=== PATIENT | female | born 1995 | race Caucasian/White ===

== ENCOUNTER 2016-12-13 07:48 | Emergency (ER) | payer SELFPAY ==
[~2016-12-13] VITALS: Ht 157.5 cm; Wt 104.0 kg
[~2016-12-13 07:48] MED LIST: ANUCORT-HC25 MG RE; KETOROLAC10 MG PO; LORTAB 5 OR; NAPROSYN500 MG OR; NO HOME MEDS; PRENATAL1 TA1 PO; TAM75CAP PO
[2016-12-13 08:12] LABS: URINE BILIRUBIN - DIPSTICK NEGATIVE (NEGATIVE); URINE BLOOD DIPSTICK LARGE (NEGATIVE); URINE COLOR YELLOW; URINE GLUCOSE - DIPSTICK NEGATIVE (NEGATIVE); URINE KETONE NEGATIVE (NEGATIVE); URINE PH 6.5 (4.5-8.0); URINE PROTEIN - DIPSTICK 30 mg/dL (NEG-TRACE); URINE SPECIFIC GRAVITY 1.025; URINE UROBILINOGEN - DIPSTICK 0.2 E.U./dL (0.2)
[2016-12-13 08:13] LABS: URINE CLARITY CLOUDY; URINE LEUK ESTERASE MODERATE (NEGATIVE)
[2016-12-13] MEDS ORDERED: PYRIDIUM200 MG PO (08:13)
[2016-12-13] MEDS ORDERED: MACROBID100 MG PO (08:13)
[2016-12-13 08:16] VITALS: BP 129/82
[2016-12-13 08:29] LABS: URINE BACTERIA FEW hpf; URINE EPITHELIAL CELLS MODERATE EPI/hpf (0-FEW); URINE MUCUS MODERATE hpf (NONE-FEW); URINE NITRITE - DIPSTICK NEGATIVE (Negative); URINE RBC 25-50 RBC/hpf (0-5)
== END 2016-12-13 08:27 | disposition home or self-care (01) | DRG 781 ==
LOC: ED 07:48
PROVIDERS: Emergency Medicine
DX: O23.41 Unspecified infection of urinary tract in pregnancy, first trimester (principal); B95.7 Other staphylococcus as the cause of diseases classified elsewhere; Z3A.01 Less than 8 weeks gestation of pregnancy

== ENCOUNTER 2017-02-17 10:29 | Emergency (ER) | payer OTHER ==
[~2017-02-17] VITALS: Ht 157.5 cm; Wt 95.0 kg
[~2017-02-17 10:29] MED LIST changes: +MACROBID100 MG PO; +PYRIDIUM200 MG PO
[2017-02-17 11:11] VITALS: BP 136/88
== END 2017-02-17 11:15 | disposition home or self-care (01) | DRG 781 ==
LOC: ED 10:29
DX: O26.891 Other specified pregnancy related conditions, first trimester (principal); R51 Headache; Z3A.13 13 weeks gestation of pregnancy

== ENCOUNTER 2019-04-23 | Emergency (ER) | payer OTHER ==
[2019-04-24 00:40] LABS: URINE BILIRUBIN - DIPSTICK NEGATIVE (NEGATIVE); URINE BLOOD DIPSTICK NEGATIVE (NEGATIVE); URINE COLOR YELLOW; URINE GLUCOSE - DIPSTICK NEGATIVE (NEGATIVE); URINE KETONE NEGATIVE (NEGATIVE); URINE LEUK ESTERASE NEGATIVE (NEGATIVE); URINE NITRITE - DIPSTICK NEGATIVE (Negative); URINE PH 5.5 (4.5-8.0); URINE PROTEIN - DIPSTICK TRACE mg/dL (NEG-TRACE); URINE SPECIFIC GRAVITY >=1.030; URINE UROBILINOGEN - DIPSTICK 0.2 E.U./dL (0.2)
[2019-04-24 00:46] LABS: IMMATURE GRANULOCYTES 0.2 % (0.0-5.0); MEAN CORPUSCULAR HGB 20.7 pG CALC (26.0-32.0); MEAN CORPUSCULAR HGB CONC 28.4 g/L CALC (32.0-36.0); NEUT# 2.51 thou/uL (2.00-7.15); RED BLOOD COUNT 4.4 mill/uL (4.20-5.60); RED CELL DISTRI WIDTH 17.2 % (11.5-15.5)
[2019-04-24 00:47] LABS: HEMOGLOBIN 9.1 g/dl (12.0-16.0); MEAN CELL VOLUME 72.7 fL CALC (80.0-100.0)
[2019-04-24 01:02] LABS: ALBUMIN 4.4 g/dL (3.2-5.0); ANION GAP 14 (6-22 (CALC)); BUN 13 mg/dL (7-17); BUN/CREATININE RATIO 21 (12-20 (CALC)); CARBON DIOXIDE 25 mmol/l (22-30); CHLORIDE 103 mmol/l (95-108); CREATININE 0.6 mg/dL (0.5-1.0); GFR > 60 ML/MIN (>=60 (CALC)); GFR FOR AFR.AMER. > 60 ML/MIN (>=60 (CALC)); POTASSIUM 3.6 mmol/l (3.5-5.1); SGOT/AST 40 u/l (14-36); SODIUM 139 mmol/l (137-146); TOTAL PROTEIN 7.9 g/dL (6.3-8.2)
[2019-04-24 01:12] LABS: ALKALINE PHOSPHATASE 77 u/l (38-126); BILIRUBIN, TOTAL 0.5 mg/dL (0.0-1.4)
[2019-04-24] MEDS ORDERED: FLEXERIL PO (02:30)
[2019-04-24] MEDS ORDERED: NAPROXEN500 MG PO (02:30)
== END 2019-04-24 02:45 | disposition home or self-care (01) ==
PROVIDERS: Emergency Medicine
DX: M54.31 Sciatica, right side (principal); M47.816 Spondylosis without myelopathy or radiculopathy, lumbar region

== ENCOUNTER 2020-08-20 11:28 | Emergency (ER) | payer OTHER ==
[~2020-08-20] VITALS: Ht 154.9 cm; Wt 114.9 kg
[~2020-08-20 11:28] MED LIST changes: +FLEXERIL PO; +NAPROXEN500 MG PO
[2020-08-20 11:30] VITALS: BP 144/67
[2020-08-20] MEDS ORDERED: PRENATA3 PO (11:48)
[2020-08-20 12:31] LABS: HEMATOCRIT 31.1 % (37.0-47.0); HEMOGLOBIN 8.5 g/dl (12.0-16.0); IMMATURE GRANULOCYTES 0.5 % (0.0-5.0); MEAN CELL VOLUME 72.5 fL CALC (80.0-100.0); MEAN CORPUSCULAR HGB 19.8 pG CALC (26.0-32.0); MEAN CORPUSCULAR HGB CONC 27.3 g/dL CAL (32.0-36.0); NEUT# 3.72 thou/uL (2.00-7.15); RED BLOOD COUNT 4.29 mill/uL (4.20-5.60); RED CELL DISTRI WIDTH 15.9 % (11.5-15.5)
[2020-08-20 12:56] LABS: ALBUMIN 4.1 g/dL (3.2-5.0); ALKALINE PHOSPHATASE 43 u/l (38-126); ANION GAP 11 (6-22 (CALC)); BILIRUBIN, TOTAL 0.7 mg/dL (0.0-1.4); BUN 6 mg/dL (7-17); BUN/CREATININE RATIO 13 (12-20 (CALC)); CARBON DIOXIDE 26 mmol/l (22-30); CHLORIDE 103 mmol/l (95-108); CREATININE 0.5 mg/dL (0.5-1.0); GFR > 60 ML/MIN (>=60 (CALC)); GFR FOR AFR.AMER. > 60 ML/MIN (>=60 (CALC)); POTASSIUM 3.5 mmol/l (3.5-5.1); SGOT/AST 27 u/l (14-36); SODIUM 137 mmol/l (137-146); TOTAL PROTEIN 7.5 g/dL (6.3-8.2)
[2020-08-20 13:12] LABS: BETA-HCG, QUANT(RESULT NUMBER) 5649 mIU/mL
[2020-08-20 13:26] LABS: URINE BILIRUBIN - DIPSTICK NEGATIVE (NEGATIVE); URINE BLOOD DIPSTICK LARGE (NEGATIVE); URINE COLOR YELLOW; URINE GLUCOSE - DIPSTICK NEGATIVE (NEGATIVE); URINE KETONE NEGATIVE (NEGATIVE); URINE LEUK ESTERASE NEGATIVE (NEGATIVE); URINE NITRITE - DIPSTICK NEGATIVE (Negative); URINE PH 6.5 (4.5-8.0); URINE PROTEIN - DIPSTICK NEGATIVE (NEG-TRACE); URINE SPECIFIC GRAVITY 1.015; URINE UROBILINOGEN - DIPSTICK 0.2 E.U./dL (0.2)
== END 2020-08-20 14:45 | disposition home or self-care (01) ==
LOC: ED 11:28
PROVIDERS: Family Medicine
DX: O46.91 Antepartum hemorrhage, unspecified, first trimester (principal); Z3A.01 Less than 8 weeks gestation of pregnancy